=== PATIENT | male | born 1960 | race Caucasian/White ===

== ENCOUNTER → 2020-06-13 | Outpatient (CLI) | payer OTHER, MEDICARE ==
[~2020-06-13] MED LIST: ADULT LOW DOSE81 MG PO; ALPHA LIPOIC AC50 MG PO; BENTYL 20MG TAB20 MG PO; COLACE 100MG C100 MG PO; COZAAR100 MG PO; EUTHYROX150 MCG PO; FLAGYL500 MG PO; GLUCOPHAGE 500500 MG PO; GLYBURIDE-METF1 EAC1 PO; IBUPROFEN800 MG PO; IMDUR ER TAB 3030 MG PO; JARDIANCE25 MG PO; LEVAQUIN500 MG PO; LIDODERM PATCH 51 EA EXT; LIPITOR TAB 1010 MG PO; NORVASC 5 MG TAB5 MG PO; OSENI 25-15 MG1 EACH PO; OZEMPIC0.25 MG/0. SQ; PROTONIX 40 MG40 M1 PO; REGLAN5 MG PO; ROXANOL SO10 MG/5 ML SL; ROXICODONE5 MG PO; TOPROL XL25 MG PO; TYLENOL 500 MG500 MG PO; VITAMIN D250000 UNIT PO; ZANAFLEX6 MG PO; ZANTAC150 MG PO; ZOFRAN ODT 4 MG4 MG PO; ZYLOPRIM 100 M100 MG PO
== END ==
LOC: KOH-I 11:59
DX: M25.512 Pain in left shoulder (principal)
CPT/HCPCS: 73030

== ENCOUNTER → 2020-07-06 | Outpatient (CLI) | payer OTHER, MEDICARE | LOC: RAD 08:30 | DX: R09.89 Other specified symptoms and signs involving the circulatory and respiratory systems (principal) | CPT/HCPCS: 74230; 92611-GN ==

== ENCOUNTER → 2020-11-13 | Outpatient (CLI) | payer OTHER | LOC: KOH-I 15:15 | DX: M54.12 Radiculopathy, cervical region (principal) | CPT/HCPCS: 72050 ==

== ENCOUNTER → 2020-11-15 | Outpatient (CLI) | payer OTHER, MEDICARE | LOC: SLEEP-COR | DX: G47.33 Obstructive sleep apnea (adult) (pediatric) (principal); G47.61 Periodic limb movement disorder | CPT/HCPCS: 95810 ==

== ENCOUNTER → 2021-08-06 | Outpatient (CLI) | payer OTHER, MEDICARE | LOC: US 07:20 → ECHO 09:00 → NM 10:00 | DX: R94.31 Abnormal electrocardiogram [ECG] [EKG] (principal); R06.02 Shortness of breath; R07.9 Chest pain, unspecified; R74.8 Abnormal levels of other serum enzymes; E78.5 Hyperlipidemia, unspecified; I10 Essential (primary) hypertension; E66.9 Obesity, unspecified; E11.9 Type 2 diabetes mellitus without complications; Z90.49 Acquired absence of other specified parts of digestive tract; K76.0 Fatty (change of) liver, not elsewhere classified; I25.9 Chronic ischemic heart disease, unspecified | CPT/HCPCS: ECHO; 76705; 78452; 93017; 93306; A9502; J2785 ==

== ENCOUNTER → 2021-11-11 | Outpatient (CLI) | payer OTHER, MEDICARE | LOC: KOH-I 13:07 | DX: I10 Essential (primary) hypertension (principal); I65.23 Occlusion and stenosis of bilateral carotid arteries | CPT/HCPCS: 93880 ==

== ENCOUNTER → 2021-12-11 | Day surgery (SDC) | payer OTHER, MEDICARE ==
[~2021-12-11] MED LIST changes: +ACCU-CHEK AVIV1 EAC2 MC; +BUSPIRONE HCL15 MG PO; +DEPO-TESTO200 MG/1 M IM; +DILAUDID1 MG/1 ML PO; +ESOMEPRAZOLE MA40 MG PO; +FREESTYLE INSU1 EAC2 MC; +IRBESARTAN300 MG PO; +MECLIZINE HCL25 MG PO; -NORVASC 5 MG TAB5 MG PO; +NORVASC10 MG PO; +TESTOSTERON100 MG/ML IM; +VIAGRA100 MG PO; +VITAMIN D21250 MCG PO
== END | disposition home or self-care (01) ==
LOC: OR 06:55
DX: Z12.11 Encounter for screening for malignant neoplasm of colon (principal); K31.9 Disease of stomach and duodenum, unspecified; K21.9 Gastro-esophageal reflux disease without esophagitis; N40.0 Benign prostatic hyperplasia without lower urinary tract symptoms; E11.9 Type 2 diabetes mellitus without complications; I10 Essential (primary) hypertension; E78.5 Hyperlipidemia, unspecified; Z86.010 Personal history of colon polyps; Z79.82 Long term (current) use of aspirin; Z79.84 Long term (current) use of oral hypoglycemic drugs; Z79.899 Other long term (current) drug therapy
CPT/HCPCS: 43239; G0121; 82962; J2704